=== PATIENT | male | born 1945 | race Caucasian/White ===

== ENCOUNTER → 2020-01-11 | Outpatient (CLI) | payer MEDICARE ==
--- NOTE | 2020-01-11 16:42 | RAD ---
EXAM: Right hip, 2 views. HISTORY: Pain. COMPARISON: None. FINDINGS: 2 views of the right hip are obtained. There is right hip joint space narrowing with subchondral sclerosis, subchondral cyst formation and marginal acetabular and femoral head spurring. There is a suspected hip joint loose body. There is a transitional lumbosacral segment, a normal variant. IMPRESSION: 1. No acute osseous finding. 2. Moderate right hip osteoarthritis. Electronically signed by: Salena Ann MD (01/11/2020 4:40 PM) [id number]
== END ==
LOC: PMG 15:33
PROVIDERS: ATTEND Family Medicine
DX: M16.11 Unilateral primary osteoarthritis, right hip (principal)
CPT/HCPCS: 73502